=== PATIENT | female | born 1995 | race Caucasian/White ===

== ENCOUNTER 2018-06-06 20:36 | Emergency (ER) | payer BC ==
[~2018-06-06] VITALS: Ht 172.7 cm; Wt 75.1 kg
[2018-06-06 20:53] VITALS: BP 107/70
== END 2018-06-06 22:11 | disposition home or self-care (01) ==
LOC: ED 21:45
DX: H53.131 Sudden visual loss, right eye (principal)
CPT/HCPCS: 99282; 99283